=== PATIENT | female | born 1975 | race African-American/Black ===

== ENCOUNTER 2018-04-06 08:30 | Day surgery (SDC) | payer OTHER ==
[~2018-04-06] VITALS: Ht 162.6 cm; Wt 99.8 kg
[2018-04-06] VITALS (16 sets, daily range): BP systolic 124–178; BP diastolic 65–101
[~2018-04-06 08:30] MED LIST: ceFAZolin 1gm IVPB IVPB ONE; celeBREX 200mg Cap **SURGERY PATIENTS ONLY ORAL ONE; oxyCONTIN 20mg tab ORAL ONE
[2018-04-06] MEDS ORDERED: NKM (09:08)
[2018-04-06] MEDS ORDERED: oxyCONTIN 20mg tab ORAL ONE (09:17)
[2018-04-06] MEDS ORDERED: celeBREX 200mg Cap **SURGERY PATIENTS ONLY ORAL ONE (09:17)
[2018-04-06] MEDS ORDERED: LR 1000ml 1,000 ML IVLG SCH (09:25)
--- NOTE | 2018-04-06 09:27 | Anethesia Preoperative Eval ---
Anesthesia Pre-op PMH/ROS General Date of Evaluation: Apr 06, 2018 Time of Evaluation: 09:31 Anesthesiologist: Mariela ASA Score: ASA 2 Mallampati Score Class I : Soft palate, uvula, fauces, pillars visible Class II: Soft palate, uvula, fauces visible Class III: Soft palate, base of uvula visible Class IV: Only hard plate visible Mallampati Classification: Class II Surgeon: Gabriella Diagnosis: L Shoulder Pain Surgical Procedure: L Shoulder Arthroscopy Family History: no anesthesia problems Allergies: Coded Allergies: CORTICOSTEROIDS (GLUCOCORTICOIDS) (Verified Allergy, Intermediate, 04/06/18) RASH Medications: see eMAR Patient NPO?: Yes Past Medical History Gastrointestinal/Genitourinary: Reports: GERD Other: obesity - BMI 40 Anesthesia Pre-op Phys. Exam Physician Exam Last Vital Signs Date Time Temp Pulse Resp B/P (MAP) Pulse Ox O2 Delivery O2 Flow Rate FiO2 04/06/18 08:59 Room Air Constitutional: NAD Neurologic: CN 2-12 intact Cardiovascular: RRR Respiratory: CTA Gastrointestinal: S/NT/ND Airway Exam Mallampati Score: Class II MO: limited ROM: limited Teeth: intact Anesthesia Pre-op A/P Labs Urine Test Test 04/06/18 08:45 Urine HCG, Qualitative Negative (NEGATIVE) Risk Assessment & Plan Assessment: ASA 2 Plan: GA, L Supraclavicular Block, SED Status Change Before Surgery: No Pre-Antibiotics Dru Grams Ancef IV Given Within 1 Hr of Incision: Yes Time Given: 09:51 Macairo Sierra MD Apr 06, 2018 09:27
[2018-04-06] MEDS ORDERED: Ropivacaine 5mg/ml Vial 30ml INJ ONE (09:28)
[2018-04-06] MEDS ORDERED: Sodium Chloride 10ml vial INJ ONE (09:28)
[2018-04-06] MEDS ORDERED: Dexamethasone 4mg/ml vial ONE (09:28)
[2018-04-06] MEDS ORDERED: EPINEPHrine 1mg/1ml Amp ONE (09:28)
[2018-04-06] MEDS ORDERED: Lidocaine 1% MPF 10mg/ml 5ml ONE (09:28)
[2018-04-06] MEDS ORDERED: Propofol 200mg/20ml IV ONE (09:28)
[2018-04-06] MEDS ORDERED: NS Irrig 4000ml IRRIG ONE (09:30)
[2018-04-06] MEDS ORDERED: LR 1000ml ONE (09:30)
[2018-04-06] MEDS ORDERED: LORazepam Inj 2mg/ml 1ml IV PRN (09:30)
[2018-04-06] MEDS ORDERED: Ketorolac 30mg Inj IV PRN ×2 (09:30)
[2018-04-06] MEDS ORDERED: oxyCODONE HCL/Acetaminophen 5/325mg ORAL PRN (09:30)
[2018-04-06] MEDS ORDERED: Hydromorphone 0.5mg/0.5ml inj IVP PRN (09:30)
[2018-04-06] MEDS ORDERED: Atropine Sulfate 0.4mg/ml inj IVP PRN (09:30)
[2018-04-06] MEDS ORDERED: DiphenhydrAMINE 50mg/ml Inj IVP PRN (09:30)
[2018-04-06] MEDS ORDERED: Sterile Water Irrig 1000ml IRRIG ONE (09:30)
[2018-04-06] MEDS ORDERED: Midazolam 2mg/2ml Inj IVP PRN (09:30)
[2018-04-06] MEDS ORDERED: fentaNYL 100 mcg/2 mL IV PRN (09:30)
[2018-04-06] MEDS ORDERED: HYDROcodone/Acetamin 7.5/325 tab ORAL PRN (09:30)
[2018-04-06] MEDS ORDERED: Meperidine 50mg/ml Inj(FOR RIGORS ONLY) IVP PRN (09:30)
[2018-04-06] MEDS ORDERED: Metoclopramide 10mg/2ml Inj IVP PRN (09:30)
[2018-04-06] MEDS ORDERED: Norco 5mg/325mg tab ORAL PRN ×2 (09:30→10:15)
--- NOTE | 2018-04-06 10:11 | Pre-Procedure Note/Attestation ---
Pre-Procedure Note/Attestation Complete Prior to Procedure Planned Procedure: left Procedure Narrative: shoulder arthroscopy, SAD, [place], resection of loose os acromial Indications for Procedure Pre-Operative Diagnosis: Left shoulder bursitis and unstable os acromial Attestation I attest that I discussed the nature of the procedure; its benefits; risks and complications; and alternatives (and the risks and benefits of such alternatives ), prior to the procedure, with the patient (or the patient's legal medical service representative). I attest that, if there was a reasonable possibility of needing a blood transfusion, the patient (or the patient's legal medical service representative) was given the [facility] standardized written summary, pursuant to the [place] Berthold Blood Safety Act ([place] Health and Safety Code # 1645, as amended). I attest that I re-evaluated the patient just prior to the surgery and that there has been no change in the patient's H&P, except as documented below: René Quiroz MD Apr 06, 2018 10:11
[2018-04-06] MEDS ORDERED: Phenylephrine 10mg/ml Vial ONE (10:12)
[2018-04-06] MEDS ORDERED: HYDROmorphone 1mg/ml Carpuject SUBQ PRN (10:15)
[2018-04-06] MEDS ORDERED: Tylenol #3 tab (300mg/30mg) ORAL PRN (10:15)
[2018-04-06] MEDS ORDERED: D5 1/2NS 1,000 ML IV SCH (10:15)
--- NOTE | 2018-04-06 10:22 | Immediate Post-Op Evaluation ---
Immediate Post-Op Evalulation Immediate Post-Op Evalulation Procedure: L Shoulder Arthroscopy Date of Evaluation: Apr 06, 2018 Time of Evaluation: 11:20 IV Fluids: 300 LR Blood Products: 0 Estimated Blood Loss: 10 Urinary Output: 0 Blood Pressure Systolic: 164 Blood Pressure Diastolic: 90 Pulse Rate: 113 Respiratory Rate: 16 O2 Sat by Pulse Oximetry: 99 Temperature (Fahrenheit): 97.5 Pain Score (1-10): 2 Nausea: No Vomiting: No Complications 0 Patient Status: awake, reacts, patent, none Hydration Status: adequate Dru Grams Ancef IV Given Within 1 Hr of Incision: Yes Time Given: 10:51 Macario Sierra MD Apr 06, 2018 10:22
--- NOTE | 2018-04-06 10:23 | 48 Hour Post Anesthesia Eval ---
Post Anesthesia Evaluation Procedure: L Shoulder Arthroscopy Date of Evaluation: Apr 06, 2018 Time of Evaluation: 13:42 Blood Pressure Systolic: 134 0: 78 Pulse Rate: 93 Respiratory Rate: 18 Temperature (Fahrenheit): 97.5 O2 Sat by Pulse Oximetry: 99 Airway: patent Nausea: No Vomiting: No Pain Intensity: 2 Hydration Status: adequate Cardiopulmonary Status: Stable Mental Status/LOC: patient returned to baseline Follow-up Care/Observations: 0 Post-Anesthesia Complications: 0 Follow-up care needed: ready to discharge Macario Sierra MD Apr 06, 2018 10:23
--- NOTE | 2018-04-06 10:54 | Brief Operative Note ---
Immediate Post Operative Note Operative Note Pre-op Diagnosis: Left shoulder bursitis and unstable os acromial Procedure: left shoulder arthroscopy, debridment of labrum, resection of meso-acromial, [place] procedure Post-op Diagnosis: same as pre-op Surgeon: abhishek Anesthesiologist: Mariela Anesthesia: general Specimen: none Complications: none Condition: stable Fluids: 500 Estimated Blood Loss: none Drains: none Implant(s) used?: René Arevalo MD Apr 06, 2018 10:54
--- NOTE | 2018-04-06 18:00 | Operative Note - Dictated ---
DATE OF OPERATION: 04/06/2018 PREOPERATIVE DIAGNOSES: 1. Left shoulder impingement. 2. Left shoulder unstable os acromiale. POSTOPERATIVE DIAGNOSES: 1. Left shoulder bursitis and impingement. 2. Left shoulder grossly unstable os acromiale. 3. Left shoulder anterior and superior labral tearing without detachment from glenoid. PROCEDURES: 1. Left shoulder arthroscopy and extensive intra-articular shaving. 2. Left shoulder debridement/repair of the anterior and superior labrum to a stable zone without anchor fixation. 3. Left shoulder subacromial bursoscopy, bursectomy, and resection of the unstable meso-acromiale. 4. Left shoulder mini-Jesi procedure (resection of inferior 30% of distal end of clavicle for coplaning). SURGEON: René Quiroz M.D. OPERATING ROOM AIDE: None. ANESTHESIOLOGIST: Macario Sierra M.D. ANESTHESIA: LMA anesthesia combined with interscalene block. EBL: Minimal. COMPLICATIONS: None. SURGICAL INDICATION: The patient is a 43-year-old female who sustained the above injury to her shoulder. The patient was treated non-operative initially, but this did not alleviate the patients symptoms. Therefore, after discussing all non-surgical and surgical options, and discussing all foreseeable risk and benefits of surgery, the patient opted for surgical treatment as described above. PATIENT POSITIONING: The patient was brought to the operating room table and was placed on the operating room table. All pressure points were well padded. General anesthesia was induced and the patient was then placed in the lateral decubitus position. All pressure points were well padded again and an axillary roll was placed. The patient's shoulder was then prepped and draped in the usual sterile fashion. Time-out was performed and the appropriate preoperative antibiotic was given by the anesthesiologist. EXAMINATION OF SHOULDER UNDER ANESTHESIA: The shoulder was examined under anesthesia with all muscles well relaxed. The shoulder was forward flexed, abducted, and was placed through full range of external and internal rotation. The anterior, posterior, and inferior stability of the shoulder was checked. The exam revealed no evidence of adhesive capsulitis and no evidence of instability. PORTAL PLACEMENT: The posterior portal was established 2 cm inferior and 1 cm medial to the edge of the posterior acromion. A 1 cm skin incision was made using an #11 blade and using the blunt obturator, the cannula was gently placed through the capsule. The mid-glenoid portal was established just lateral to the coracoid process under direct visualization. Direction of the cannula was first established using a spinal needle, and subsequently, the cannula was placed through the capsule with a blunt obturator. DIAGNOSTIC ARTHROSCOPY: The biceps tendon was probed and pulled through the joint for visualization. It appeared normal. The biceps anchor was palpated with a probe and was visualized. There was some anterior as well as anterior superior labral tearing, but there was no detachment from glenoid. The posterior labrum and axillary recess was visualized. This was normal and there was no evidence of loose cartilage or fragments in this area. The glenoid articular surface was visualized and it appeared normal. The articular surface of the rotator cuff was visualized and probed next. There was no evidence of articular-sided rotator cuff tear extending from the supraspinatus back to the posterior cuff. The humeral head articular surface was then visualized. There was no evidence of articular cartilage damage. Next, the anterior labrum, middle glenohumeral ligament, subscapularis tendon, and the anterior inferior glenohumeral ligament were evaluated. Again, there was some anterior labral fraying and tearing, the middle glenohumeral ligament, subscapularis tendon, and anterior inferior glenohumeral ligaments were intact. At this point, the scope was moved to the mid-glenoid portal and the posterior structures including the posterior labrum, posterior capsule and posterior cuff were visualized. These structures were completely normal. The subscapularis recess was devoid of any loose bodies and the anterior capsule was well attached to the humeral neck. The middle and anterior inferior glenohumeral ligament was visualized. These structures were completely normal. OPERATIVE DEBRIDEMENTS AND REPAIR: Care was given to all partial thickness tears and frayed structures in the shoulder joint. The frayed rotator cuff and labrum was debrided using a shaver initially through the anterior portal and subsequently through the posterior portal to complete the debridement. This allowed for smooth debridement of all affected structures and all loose fragments were removed. DIAGNOSTIC BURSOSCOPY AND SUBACROMIAL DECOMPRESSION: The subacromial bursa was entered from the posterior portal. The anterior portal was established under the CA ligament using a switching stick. Subacromial arthroscopy was initiated. There was extensive bursitis and thickened and inflamed bursa tissue present. The CA ligament appeared to be scuffed and frayed. The shaver was placed through the anterior cannula and debridement of the hypertrophic bursa tissue was accomplished. Once visualization was adequate, a lateral portal was established using a blunt trochar in the mid portion of the acromion bone in the anterior-posterior direction and approximately 2 cm lateral to the lateral edge of the acromion. Using combination of shaver and electrocautery, the CA ligament was released from the undersurface of the acromion and a complete bursectomy was accomplished. At this point, a meso-acromiale was identified. This was grossly unstable. There was some inflammation over the fibrous attachment. Therefore, discussion with the patient's prior to surgery, resection of meso-acromiale was performed. This was done using combination of solis and electrocautery, both from lateral portal as well as anterior portal. from lateral portal to decompress the entire meso-acromiale. Care was given not to damage the deltoid fascia superiorly. There was excellent resection on the meso-acromiale and all bony remnants were removed. The meso-acromiale came all the way back to the posterior aspects of the clavicle. At this point, the arm was placed into external, neutral, and then internal rotation and the rotator cuff was visualized. There was no evidence of rotator cuff tear. At this point, care was given to the distal clavicle. EVALUATION OF DISTAL CLAVICLE AND DISTAL CLAVICLE RESECTION: Care was given to the distal end of the clavicle. Using electrocautery and cele, the distal end of the bursa and soft tissue around the distal end of the clavicle was dbrided and cleaned. Care was given not to inflict excessive trauma to the ligaments of the AC joint. The distal end of the clavicle appeared to have an inferior osteophyte extending down well bellow the level of the acromion at the level of the AC joint. This appeared to be impinging onto the supraspinatus muscle belly and the musculotendinous junction of the rotator cuff. A mini-Jesi procedure was performed by using a solis to resect the inferior 30% of the distal end of the clavicle. This decompression allowed space for the inferior structures to slide without impingement. This co-plained the inferior edge of the distal clavicle with the inferior edge of the acromion. CONDITION AT DISCHARGE FROM OPERATING ROOM: The skin was re-approximated and sterile dressing and sling were applied. All lap counts and instrument counts were correct. The patient tolerated the procedure well without complications and was taken to the recovery room in stable conditions. René Quiroz M.D. DR: MEHNAZ JOB#: [id number] CC:
== END 2018-04-06 14:15 | disposition home or self-care (01) ==
LOC: SUR 08:30
DX: M75.42 Impingement syndrome of left shoulder (principal); M75.52 Bursitis of left shoulder; S43.432A Superior glenoid labrum lesion of left shoulder, initial encounter; K21.9 Gastro-esophageal reflux disease without esophagitis; E66.9 Obesity, unspecified; Z68.41 Body mass index [BMI] 40.0-44.9, adult; Z88.8 Allergy status to other drugs, medicaments and biological substances
CPT/HCPCS: 29823; 29824; 29826; 81025; J0171; J0690; J1100; J1170; J2250; J2370; J2405; J2704; J2795; 94003; 94150